=== PATIENT | female | born 1985 | race Caucasian/White ===

== ENCOUNTER 2018-07-31 08:02 | Day surgery (SDC) | payer MEDICAID ==
[~2018-07-31] VITALS: Ht 162.6 cm; Wt 86.8 kg
[2018-07-31] VITALS (17 sets, daily range): BP systolic 82–101; BP diastolic 45–62; PULSE 74–100; RESP 6–23; Ht 162.6 cm; Wt 86.8 kg
--- NOTE | 2018-07-31 08:34 | PREOPHP ---
DATE OF ADMISSION: 07/31/2018 HISTORY OF PRESENT ILLNESS: The patient is a 33-year-old 2, para 1, LMP 04/03/2019, diagnose d with missed /an anembryonic . She desires surgical management. PAST MEDICAL HISTORY: None. MEDICATIONS: None. PAST SURGICAL HISTORY: Laparoscopic cholecystectomy. OBSTETRICAL HISTORY: x1 vaginal delivery. GYNECOLOGIC HISTORY: 14, regular 3 to 4 days. She denies any sexually transmitted disease. Sexuall y active with 1 partner. SOCIAL HISTORY: She denies any smoking, drugs or alcohol. FAMILY HISTORY: None. REVIEW OF SYSTEMS: All within normal except history of present illness. PHYSICAL EXAMINATION: HEENT: Within normal. LUNGS: CTA bilateral. CARDIOVASCULAR: S1, S2, regular rhythm. ABDOMEN: Soft, nontender, negative distention. EXTREMITIES: Negative. No calf tenderness. VAGINAL: Normal external genitalia. Cervix negative, CMT, negative lesions. Adnexa negative mass, nontender bilateral. Fundus within normal limits. Beta hCG on 07/20/2018 24,134. Beta hCG on 07/14 19,943. Ultrasound performed on 07/17/2018. IMPRESSION: The intrauterine sac is approximately stable with persistent absence of pole with embryonic demise on anembryonic . ASSESSMENT: Missed , Rh positive. She desires surgical management. PLAN: Scheduled for suction dilation and curettage. Risks, benefits and alternatives explained. Al caroline questions were answered. Dictated By: AVELINA CONN/JOSEPH Conf#: [id number] DID#: [id number] CC: AVELINA COLON MD;*EndCC*
[2018-07-31] MEDS ORDERED: LACTATED RINGER'S 1,000 ML IV SCH (09:00)
--- NOTE | 2018-07-31 09:20 | PREAC ---
Date/Time of Note Date/Time of Note DATE: 07/31/18 TIME: 09:18 Anesthesia Eval and Record Evaluation Time Pre-Procedure Interview DATE: 07/31/18 TIME: 09:18 Age 33 Sex female NPO: 8 hrs Preoperative diagnosis Missed Planned procedure D and C Past Medical History Past Medical History: Includes GI: Obesity Surgery & Anesthesia Issues No known issue (Tenisha) Meds Anticoagulation: No Beta Oumar within 24 hr: No Reason Beta Oumar not given: Pt. not on B-Oumar No Active Prescriptions or Reported Meds Current Medications Lactated Ringer's 1,000 ml @ 30 mls/hr Q24H IV ; Start 07/31/18 at 09:00 Meds reviewed: Yes Allergies Coded Allergies: No Known Allergy (Unverified , 07/31/18) Allergies Reviewed: Yes Labs/Studies Labs Reviewed: Reviewed by anesthesiologist test: N/A Pre-procedure Exam Airway: Adequate mouth opening, Adequate thyromental dist Mallampati: Mallampati III Teeth: Normal Lung: Normal Heart: Normal ASA Physical Status ASA physical status: 2 Emergency: None Planned Anesthetic General/MAC: LMA Pre-operative Attestations Prior to commencing anesthesia and surgery, the patient was re-evaluated, there was verification of: *The patient's identity *The results of appropriate recent lab work and preoperative vital signs *The above evaluation not changing prior to induction *Anesthetic plan, risk benefits, alternative and complications discussed with patient/family; questions answered; patient/family understands, accepts and wishes to proceed. Senior Insight Manager used (Thu CROOKS) HUGO BORRERO CRNA Jul 31, 2018 09:20
[2018-07-31] MEDS ORDERED: FENTAnyl 50 MCG/ML VIAL ONE (09:28)
[2018-07-31] MEDS ORDERED: PROPOFOL 40 ML ONE (09:28)
[2018-07-31] MEDS ORDERED: LIDOCAINE 2% (SDV) 5 ML INJ ONE (09:30)
[2018-07-31] MEDS ORDERED: METOCLOPRAMIDE 10 MG INJ ONE (09:42)
[2018-07-31] MEDS ORDERED: METHYLERGONOVINE 0.2 MG INJ ONE (09:57)
[2018-07-31] MEDS ORDERED: ONDANSETRON 4 MG INJ ONE (09:57)
[2018-07-31] MEDS ORDERED: KETOROLAC 30 MG INJ ONE (10:01)
--- NOTE | 2018-07-31 10:05 | PD.PPDC ---
BOLOGNA MAKER Discharge Instruction Diagnosis [id number] Final Diagnosis: Pqtdu9t missed Condition Jirhv7Qi Patient Condition: Crxca8r Fair Diet Gezhd6Ve Diet: Bjcbq9x Resume Regular Diet Activity/Restrictions Grkmc2Ju Activity: Ahgkf5h Normal Activity May Shower Uzpvq5Oe Restrictions: Bsawr6b No Exercising No Lifting No Driving No Sexual Activity Nothing in the Vagina No [place] No Tampons, douche Follow-up Follow-up with Physician: Week/Weeks Return to clinic for 2 Lghmb4Wq CABIN CLEANING SUPERVISOR Instructions: Mgrax3o Fever greater than 101 Chills Worsening abdominal pain Excessive Vaginal Bleeding More than 2 pads per hour Unable to tolerate diet Vpyif2Wm OB Instructions: Wkbat5z Breast Tenderness Depression Blurried Vision Headache AVELINA COLON MD Jul 31, 2018 10:05
--- NOTE | 2018-07-31 10:08 | OPPN ---
Date/Time of Note Date/Time of Note DATE: 07/31/18 TIME: 10:06 Operative Report Planned Procedure Procedure date Jul 31, 2018 Procedure(s) suction dilation and curettage Performed by see signature line Cargo And Container Inspector: AVELINA COLON MD 2nd Cargo And Container Inspector none Pre-procedure diagnosis missed Bihtt2Bu Anesthesia Type: Fxefe8u general Post-Procedure Post-procedure diagnosis same Findings 8 wk size uterus with products of conception Estimated Blood Loss: 0 - 10 mls (20 mls) Specimen(s) products of conception Grafts/Implant(s) none Complication(s) none AVELINA COLON MD Jul 31, 2018 10:08
--- NOTE | 2018-07-31 10:17 | PAC ---
Date/Time of Note Date/Time of Note DATE: 07/31/18 TIME: 10:16 Post-Anesthesia Notes Post-Anesthesia Note Last documented vital signs Vital Signs Date Temp Pulse Resp B/P (MAP) Pulse Ox O2 O2 Flow FiO2 Time Delivery Rate 07/31/18 97.9 10:13 07/31/18 77 16 101/58 98 Room Air 09:20 (72) Activity: WNL Respiratory function: WNL Cardiovascular function: WNL Mental status: Baseline Pain reasonably controlled: Yes Hydration appropriate: Yes Nausea/Vomiting absent: Yes HUGO BORRERO CRNA Jul 31, 2018 10:17
[2018-07-31] MEDS ORDERED: OXYCODONE/ACETAMINOPHEN (5/325) TAB PO PRN ×2 (10:30)
[2018-07-31] MEDS ORDERED: FENTAnyl 50 MCG/ML VIAL IV PRN ×2 (10:30)
[2018-07-31] MEDS ORDERED: LABETALOL HCL 20MG INJ IV PRN (10:30)
[2018-07-31] MEDS ORDERED: ONDANSETRON 4 MG INJ IV PRN (10:30)
--- NOTE | 2018-07-31 12:40 | OPPN ---
Date/Time of Note Date/Time of Note DATE: 07/31/18 TIME: 12:39 Anesthesia Follow up Anesthesia Follow up Last documented vital signs Vital Signs Date Temp Pulse Resp B/P (MAP) Pulse Ox O2 O2 Flow FiO2 Time Delivery Rate 07/31/18 80 23 91/55 (67) 98 Room Air 11:27 07/31/18 98.9 10:13 Respiratory function: WNL Cardiovascular function: WNL (in DISC INSPECTOR report MAP =60 and SBP in 80's. Baseline preinduction SBp in 80s. OK to discharge. Patient in no distress) HUGO BORRERO CRNA Jul 31, 2018 12:40
--- NOTE | 2018-08-01 08:44 | OPR ---
DATE OF OPERATION: 07/31/2018 PREOPERATIVE DIAGNOSES: Missed , Rh positive. POSTOPERATIVE DIAGNOSES: Missed , Rh positive. OPERATION PERFORMED: Suction, dilation and curettage. ENGINEERING COORDINATOR: None. ANESTHESIA: General. COMPLICATIONS: None. ESTIMATED BLOOD LOSS: 20 mL. FINDINGS: An 8-week size anteverted uterus with moderate amounts of products of conception. DESCRIPTION OF PROCEDURE: After explaining the risks, benefits and alternatives, the patient had con sent signed in chart, the patient was taken to the operating room where general anesthesia was obtain ed without difficulty. The patient was then examined under anesthesia and found to have an 8-week si ze uterus with normal adnexa. She was then placed in dorsal lithotomy position and prepared and drap ed in a sterile fashion. A heavy weighted speculum was then placed in the patient's vagina and the a nterior lip of the cervix was grasped with a single tooth tenaculum. At this point, an 8 mm suction curette was advanced gently into the uterine fundus. The suction device was activated and the curett e rotated to clear the uterus of all products of conception. A sharp curettage was performed until a gritty texture was noted. The suction curette was then reintroduced to clear the uterus of all brittany ining products of conception. There were minimal bleeding noted and the tenaculum removed with good hemostasis. The patient was taken to recovery room in stable condition. Dictated By: AVELINA CONN/JOSEPH Conf#: [id number] DID#: [id number] CC: AVELINA COLON MD;*End*
== END 2018-07-31 12:15 | disposition home or self-care (01) ==
LOC: SDS 08:02
PROVIDERS: ATTEND Obstetrics & Gynecology
DX: O02.1 Missed abortion (principal)
CPT/HCPCS: 59820; 85025; 86850; 86900; 86901; J1885; J2210; J2405; J2765; J3010; Z7512; Z7610; 88305